=== PATIENT | female | born 1965 | race Caucasian/White ===

== ENCOUNTER 2021-07-13 12:03 | Outpatient (CLI) | payer OTHER, SELFPAY ==
[2021-07-13 12:33] LABS: Hematocrit 39.7 % (35.0-49.0); Hemoglobin 12.6 g/dL (12.0-15.0); Mean Corpuscular HGB Conc 31.7 g/dL (32.0-36.0); Mean Corpuscular Hemoglobin 28.7 pg (27.0-31.0); Mean Corpuscular Volume 90.4 fL (78.0-102.0); Mean Platelet Volume 10.7 fl (9.2-11.8); Platelet Count Result 260 K/mm3 (150-420); Red Blood Count 4.39 M/mm3 (4.20-5.40); White Blood Count 4.7 K/mm3 (4.8-10.8)
[2021-07-13 12:42] LABS: Hemoglobin A1C 5.4 % (<5.7)
[2021-07-13 13:13] LABS: Alanine Aminotransferase 33 U/L (14-59); Alkaline Phosphatase 77 U/L (46-116); Anion Gap 9 mmol/L (8-16); Aspartate Amino Transferase 21 U/L (15-37); Bilirubin,Total 0.4 mg/dL (0.00-1.00); Blood Urea Nitrogen 18 mg/dL (7-18); Calcium 8.8 mg/dL (8.5-10.1); Carbon Dioxide 29 mmol/L (21-32); Chloride 107 mmol/L (98-108); Cholesterol 202 mg/dL (0-200); Estimated Glomerular Filt Rate > 60; Free T4 Free Thyroxine 0.89 ng/dL (0.76-1.46); Glucose 93 mg/dL (70-99); HDL Direct 56 mg/dL (40-60); LDL Cholesterol Calculated 132 mg/dL (<130); Osmolality Calculated 301 mOsm/kg (285-295); Sodium 145 mmol/L (136-145); Thyroid Stimulating Hormone 2.39 uIU/mL (0.36-3.74); Total Protein 7.5 g/dL (6.4-8.2); Triglycerides 72 mg/dL (0-150); Vitamin B12 566 pg/mL (193-986)
[2021-07-16 13:04] LABS: Vitamin D 25 Hydroxy 23 ng/mL (30-100)
== END 2021-07-13 12:04 | disposition home or self-care (01) ==
LOC: CHSLAB 12:09
PROVIDERS: PCP Nurse Practitioner Family; Visit Provider Obstetrics & Gynecology
DX: Z13.21 Encounter for screening for nutritional disorder (principal); Z13.220 Encounter for screening for lipoid disorders; Z13.29 Encounter for screening for other suspected endocrine disorder
CPT/HCPCS: 36415; 80053; 80061; 82306; 82607; 83036; 84439; 84443; 85027